=== PATIENT | female | born 1950 ===

== ENCOUNTER 2019-07-24 05:11 | Day surgery (SDC) | payer MEDICARE, MEDICAID ==
[~2019-07-24] VITALS: Ht 165.1 cm; Wt 79.8 kg
[2019-07-24] VITALS (16 sets, daily range): BP systolic 113–132; BP diastolic 56–77
[~2019-07-24 05:11] MED LIST: ATORVASTATIN CA20 MG ORAL; CALCIUM500 M3 PO; FOSAMAX70 MG ORAL; GABAPENTIN300 MG ORAL; MELOXICAM15 MG PO; OMEPRAZOLE20 M2 ORAL
[2019-07-24] MEDS ORDERED: Maxitrol Opth Oint 3.5gm BOTH EYES ONE (06:00)
[2019-07-24] MEDS ORDERED: Akten 3.5% 1ml Btl BOTH EYES ONE (06:00)
[2019-07-24 06:26] LABS: BASOPHILS % (AUTO) 0.6 % (0.0-2.0); EOSINOPHILS % (AUTO) 2.1 % (0.0-3.0); HEMATOCRIT 41.4 % (37.0-47.0); HEMOGLOBIN 13.6 G/DL (12.0-16.0); LYMPHOCYTES % (AUTO) 37.7 % (20.0-45.0); MEAN CORPUSCULAR VOLUME 89 FL (80-99); MONOCYTES % (AUTO) 8.6 % (1.0-10.0); PLATELET COUNT 299 K/UL (150-450); RED BLOOD COUNT 4.64 M/UL (4.20-5.40); RED CELL DISTRIBUTION WIDTH 12.9 % (11.6-14.8); WHITE BLOOD COUNT 5.5 K/UL (4.8-10.8)
[2019-07-24] MEDS ORDERED: Midazolam 2mg/2ml Inj ONE (06:57)
[2019-07-24] MEDS ORDERED: fentaNYL 100 mcg/2 mL IV ONE (06:57)
[2019-07-24] MEDS ORDERED: Propofol 200mg/20ml IV ONE (07:00)
[2019-07-24] MEDS ORDERED: Sterile Water Irrig 1000ml IRRIG ONE (07:00)
[2019-07-24] MEDS ORDERED: NS Irrig 1000ml ONE (07:00)
[2019-07-24] MEDS ORDERED: LR 1000ml ONE (07:00)
[2019-07-24] MEDS ORDERED: Povidone-Iodine 5% opth solution ONE (07:13)
[2019-07-24] MEDS ORDERED: Tetracaine 0.5% Opth 4ml Soln ONE (07:13)
[2019-07-24] MEDS ORDERED: Polysporin Opth Oint 3.5gm ONE (07:13)
[2019-07-24] MEDS ORDERED: LR 1000ml 1,000 ML IVLG SCH (08:12)
--- NOTE | 2019-07-24 08:12 | Anethesia Preoperative Eval ---
Anesthesia Pre-op PMH/ROS General Date of Evaluation: Jul 24, 2019 Time of Evaluation: 07:10 Anesthesiologist: Dominguez ASA Score: ASA 2 Mallampati Score Class I : Soft palate, uvula, fauces, pillars visible Class II: Soft palate, uvula, fauces visible Class III: Soft palate, base of uvula visible Class IV: Only hard plate visible Mallampati Classification: Class II Surgeon: Yoana Diagnosis: Bilateral ptosis Surgical Procedure: Bilateral blepharoplasty Anesthesia History: none Family History: no anesthesia problems Allergies: Coded Allergies: No Known Allergies (Unverified , 07/24/19) Medications: see eMAR Patient NPO?: Yes Past Medical History Cardiovascular: Denies: HTN, CAD, [place], valve dz, arrhythmia, other Pulmonary: Denies: asthma, COPD, [place], other Gastrointestinal/Genitourinary: Reports: GERD; Denies: CRI, ESRD, other Neurologic/Psychiatric: Reports: depression/anxiety; Denies: dementia, CVA, TIA, other Endocrine: Denies: DM, hypothyroidism, steroids, other HEENT: Reports: cataract (L), cataract (R); Denies: glaucoma, [place] (L), [place] (R), other Hematology/Immune: Reports: anemia - mild; Denies: DVT, bleeding disorder, other Musculoskeletal/Integumentary: Reports: other - s/p bilateral posttraumatic AKA ; Denies: OA, RA, DJD, DDD, edema Other: other - overweight PMH Narrative: as above, PSxH Narrative: Bilateral AKA, lipoma excision, BTL Anesthesia Pre-op Phys. Exam Physician Exam Last Vital Signs Date Time Temp Pulse Resp B/P (MAP) Pulse Ox O2 Delivery O2 Flow Rate FiO2 07/24/19 06:13 Room Air 07/24/19 05:45 97.7 61 18 119/77 97 Constitutional: NAD Neurologic: CN 2-12 intact Cardiovascular: RRR, no M/R/G Respiratory: CTA Gastrointestinal: S/NT/ND Airway Exam Mallampati Score: Class II MO: limited Neck: short ROM: limited Teeth: missing Dentures: no upper, no lower Anesthesia Pre-op A/P Labs Hematology Test 07/24/19 06:05 White Blood Count 5.5 K/UL (4.8-10.8) Red Blood Count 4.64 M/UL (4.20-5.40) Hemoglobin 13.6 G/DL (12.0-16.0) Hematocrit 41.4 % (37.0-47.0) Mean Corpuscular Volume 89 FL (80-99) Mean Corpuscular Hemoglobin 29.4 PG (27.0-31.0) Mean Corpuscular Hemoglobin Concent 33.0 G/DL (32.0-36.0) Red Cell Distribution Width 12.9 % (11.6-14.8) Platelet Count 299 K/UL (150-450) Mean Platelet Volume 6.3 FL (6.5-10.1) L Neutrophils (%) (Auto) 51.0 % (45.0-75.0) Lymphocytes (%) (Auto) 37.7 % (20.0-45.0) Monocytes (%) (Auto) 8.6 % (1.0-10.0) Eosinophils (%) (Auto) 2.1 % (0.0-3.0) Basophils (%) (Auto) 0.6 % (0.0-2.0) Donald Mix MD Jul 24, 2019 08:12
[2019-07-24] MEDS ORDERED: Hydromorphone 0.5mg/0.5ml inj IVP PRN (08:15)
[2019-07-24] MEDS ORDERED: Ketorolac 30mg Inj IV PRN (08:15)
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
--- NOTE | 2019-07-24 09:34 | Immediate Post-Op Evaluation ---
Immediate Post-Op Evalulation Immediate Post-Op Evalulation Procedure: Bilateral blepharoplasty Date of Evaluation: Jul 24, 2019 Time of Evaluation: 09:33 IV Fluids: 500 Blood Products: none Estimated Blood Loss: min Urinary Output: none Blood Pressure Systolic: 128 Blood Pressure Diastolic: 75 Pulse Rate: 64 Respiratory Rate: 20 O2 Sat by Pulse Oximetry: 99 Temperature (Fahrenheit): 97.5 Nausea: No Vomiting: No Complications none Patient Status: awake, patent, none Hydration Status: adequate Donald Mix MD Jul 24, 2019 09:34
--- NOTE | 2019-07-24 09:37 | Discharge Summary ---
Discharge Summary Discharge Summary Discharge Summary DATE OF ADMISSION: 07/24/19 DATE OF DISCHARGE: 07/24/19 REASON FOR HOSPITALIZATION: Blurry vision and droopy eyelids, difficulty watching TV SURGERY PERFORMED: 1- Ptosis correction upper lids 2- Entropion correction upper lids 3- Blepharoplasty upper lids CONDITION IN THE HOSPITAL:The patient tolerated the surgery without complications. DISCHARGE CONDITION: The patient was stable at discharge. DISCHARGE MEDICATIONS: 1. Vigamox eye drops one drop q.i.d, 2. Prednisolone one drop q.i.d, 3. Maxitrol eye ointment apply to the wound 4- Keflex 500 mg q8h Narco 5/350 mg q6h PRN per pain POSTOPERATIVE ORDERS: The patient has to rest at home. No bending, No lifting, No watching Television tonight. POSTOPERATIVE FOLLOW UP: The patient will be followed in my office tomorrow morning at 7 o'clock. Stephen Lees MD Jul 24, 2019 09:37
--- NOTE | 2019-07-24 09:40 | Pre-Procedure Note/Attestation ---
Pre-Procedure Note/Attestation Complete Prior to Procedure Planned Procedure: bilateral Procedure Narrative: 1- Ptosis correction upper lids 2- Entropion correction upper lids 3- Blepharoplasty upper lids Indications for Procedure Pre-Operative Diagnosis: 1- Ptosis upper lids 2- Entropion upper lids 3- Dermatochlasis and Blepharochlasis upper lids Attestation I attest that I discussed the nature of the procedure; its benefits; risks and complications; and alternatives (and the risks and benefits of such alternatives ), prior to the procedure, with the patient (or the patient's legal provider service representative). I attest that, if there was a reasonable possibility of needing a blood transfusion, the patient (or the patient's legal provider service representative) was given the [place] Department of Health Services standardized written summary, pursuant to the Harry Candis Blood Safety Act ([place] Health and Safety Code # 1645, as amended). I attest that I re-evaluated the patient just prior to the surgery and that there has been no change in the patient's H&P, except as documented below: Stephen Lees MD Jul 24, 2019 09:40
--- NOTE | 2019-07-24 09:41 | Pre-Procedure Note/Attestation ---
Pre-Procedure Note/Attestation Indications for Procedure Pre-Operative Diagnosis: 1- Ptosis upper lids 2- Entropion upper lids 3- Dermatochlasis and Blepharochlasis upper lids Attestation I attest that I discussed the nature of the procedure; its benefits; risks and complications; and alternatives (and the risks and benefits of such alternatives ), prior to the procedure, with the patient (or the patient's legal financial service representative). I attest that, if there was a reasonable possibility of needing a blood transfusion, the patient (or the patient's legal financial service representative) was given the [facility] of [facility] Services standardized written summary, pursuant to the Harry [place] Blood Safety Act ([place] Health and Safety Code # 1645, as amended). I attest that I re-evaluated the patient just prior to the surgery and that there has been no change in the patient's H&P, except as documented below: Stephen Lees MD Jul 24, 2019 09:41
--- NOTE | 2019-07-24 09:41 | Pre-Procedure Note/Attestation ---
Pre-Procedure Note/Attestation Indications for Procedure Pre-Operative Diagnosis: 1- Ptosis upper lids 2- Entropion upper lids 3- Dermatochlasis and Blepharochlasis upper lids Attestation I attest that I discussed the nature of the procedure; its benefits; risks and complications; and alternatives (and the risks and benefits of such alternatives ), prior to the procedure, with the patient (or the patient's legal investment representative). I attest that, if there was a reasonable possibility of needing a blood transfusion, the patient (or the patient's legal investment representative) was given the [facility] of Health Services standardized written summary, pursuant to the Harry [place] Blood Safety Act ([place] Health and Safety Code # 1645, as amended). I attest that I re-evaluated the patient just prior to the surgery and that there has been no change in the patient's H&P, except as documented below: Stephen Lees MD Jul 24, 2019 09:41
--- NOTE | 2019-07-24 09:44 | Brief Operative Note ---
Immediate Post Operative Note Operative Note Chief Complaint: Difficulty watching TV, Droopy eyelids Tiredeyes Pre-op Diagnosis: 1- Ptosis upper lids 2- Entropion upper lids 3- Dermatochlasis and Blepharochlasis upper lids Procedure: 1- Ptosis correction upper lids 2- Entropion correction upper lids 3- Blepharoplasty, upper lids Post-op Diagnosis: same as pre-op Surgeon: Stephen Lees MD Psychology Professor: None Additional Surgeons: None Anesthesiologist: Dr. Mix Anesthesia: local, MAC Specimen: none Complications: none Condition: stable Fluids: 400ml Estimated Blood Loss: minimal Drains: none Implant(s) used?: No Stephen Lees MD Jul 24, 2019 09:44
--- NOTE | 2019-07-24 16:20 | 48 Hour Post Anesthesia Eval ---
Post Anesthesia Evaluation Procedure: Bilateral blepharoplasty Date of Evaluation: Jul 24, 2019 Time of Evaluation: 14:20 Blood Pressure Systolic: 132 0: 56 Pulse Rate: 72 Respiratory Rate: 20 Temperature (Fahrenheit): 97.6 O2 Sat by Pulse Oximetry: 98 Airway: patent Nausea: No Vomiting: No Pain Intensity: 1 Hydration Status: adequate Cardiopulmonary Status: stable Mental Status/LOC: patient returned to baseline Follow-up Care/Observations: n/a Post-Anesthesia Complications: none Follow-up care needed: ready to discharge Donald Mix MD Jul 24, 2019 16:20
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
== END 2019-07-24 13:25 | disposition home or self-care (01) ==
LOC: SUR 05:11 → EDBD 05:11 → SUR 13:25
DX: H02.403 Unspecified ptosis of bilateral eyelids (principal); H02.004 Unspecified entropion of left upper eyelid; H02.001 Unspecified entropion of right upper eyelid; H02.834 Dermatochalasis of left upper eyelid; H02.831 Dermatochalasis of right upper eyelid; K59.09 Other constipation; K21.9 Gastro-esophageal reflux disease without esophagitis; Z89.612 Acquired absence of left leg above knee; Z89.611 Acquired absence of right leg above knee; Z79.899 Other long term (current) drug therapy; E78.00 Pure hypercholesterolemia, unspecified
CPT/HCPCS: 15822; 36415; 67924; 85025; J2250; J2704; J3010; J7120; 94003; 94150